=== PATIENT | female | born 1930 | race Caucasian/White ===

== ENCOUNTER 2017-08-07 11:31 | Emergency (ER) | payer OTHER ==
[~2017-08-07] VITALS: Ht 160 cm; Wt 55.8 kg
[~2017-08-07 11:31] MED LIST: AVANDIA4 MG PO; COZAAR50 MG PO; [UNRECOGNIZED DRUG - OTHER] PO
[2017-08-07] MEDS ORDERED: ZOCOR80 MG (11:39)
== END 2017-08-07 18:42 | disposition home or self-care (01) ==
LOC: ER 11:31
DX: J45.909 Unspecified asthma, uncomplicated (principal)